=== PATIENT | male | born 1955 | race Caucasian/White ===

== ENCOUNTER 2021-07-21 00:43 | Day surgery (SDC) | payer OTHER, SELFPAY ==
[2021-07-17 12:43] VITALS: BMI 31.5
[2021-07-21 10:28] VITALS: BP 126/71; PULSE 49; RESP 16; TEMP 36.3; O2SAT 96; BMI 32.1
--- NOTE | 2021-07-21 10:45 | ECG_ITS ---
Measurements Intervals [place] Rate: 45 P: 82 OR: 153 QRS: 6 QRSD: 85 T: 39 QT: 464 QTc: 404 Interpretive Statements SINUS BRADYCARDIA BASELINE ARTIFACT- I, II, III, AVR, AVL, AVF, V1-V2 ABNORMAL ECG Electronically Signed On 07-21-2021 11:07:43 CDT by Ha Monge D.O.
--- NOTE | 2021-07-21 11:05 | SUR.PREOP ---
1105- Per Dr. Santana after evaluation of patient's left ankle fracture patient's surgery cancelled due to increased swelling and fracture blisters. Surgery rescheduled for Wednesday07/25/[address] Santana made patient and aware of plan.
--- NOTE | 2021-07-21 11:05 | WPDHPUPDATE1 ---
History and Physical Update Update Date/Time: 07/21/21 11:05 History and Physical has been reviewed, including an updated exam of the patient. He has fracture blisters with tense swelling around the ankle consistent with this type injury. The lower leg splint was rewrapped snugly and instructions given for him to keep this maximally elevated. This has been rescheduled to this coming July 25.
[2021-07-21 11:25] LABS: Anion Gap 8 mmol/L (8-16); Blood Urea Nitrogen 20 mg/dL (9-20); Calcium 9.1 mg/dL (8.4-10.2); Carbon Dioxide 28 mmol/L (22-30); Chloride 104 mmol/L (98-107); Estimated CRCL calculation 79 ml/min; Estimated Glomerular Filt Rate > 60; Glucose 142 mg/dL (65-110); Potassium 3.8 mmol/L (3.4-5.0); Sodium 140 mmol/L (137-145)
== END 2021-07-21 11:50 | disposition home or self-care (01) ==
PROVIDERS: Anesthesiology; PCP Physician Assistant; Visit Provider Orthopaedic Surgery
DX: S82.832A Other fracture of upper and lower end of left fibula, initial encounter for closed fracture (principal); Z53.09 Procedure and treatment not carried out because of other contraindication
CPT/HCPCS: 36415; 80048; 93005; 99212; G0463

== ENCOUNTER 2021-07-25 02:00 | Day surgery (SDC) | payer OTHER, SELFPAY ==
[2021-07-21 12:30] VITALS: BMI 32.1
[2021-07-25] VITALS (8 sets, daily range): BP systolic 108–141; BP diastolic 55–82; PULSE 58–69; RESP 10–19; TEMP 36.3; O2SAT 95–100
--- NOTE | ~2021-07-25 | XR_ITS ---
EXAMINATION: XR surgery orthopedic DATE: 07/25/2021 09:00 INDICATION: ORIF left ankle fracture TECHNIQUE: A fluoroscopic spot images of the left ankle were obtained during procedure performed by Kristopher Santana. Radiologist was not present for the imaging or procedure. The amount of fluoroscopy time use d during this procedure was 0.6 minutes. COMPARISON: 07/16/2021 FINDINGS: Interval fixation of the prior distal fibular diaphyseal fracture with a lateral plate and screws. Th e fractures in essentially anatomic alignment. There is also been reduction and fixation of the dista l syndesmotic injury with a lucent wire fixation with metallic buttons at either side of the lucent d istal tibial and fibular metaphyseal tunnels. The prior mild subluxation of the ankle joint is been r educed also too anatomic alignment with a congruent ankle mortise. No other fractures identified. IMPRESSION: 1. Reduction to essentially anatomic alignment post open reduction internal fixation of a distal fibu lar diaphyseal fracture with distal tibiofibular syndesmotic injury. Reviewed, dictated and finalized at location A. IMPRESSION: 1. Reduction to essentially anatomic alignment post open reduction internal fix ation of a distal fibular diaphyseal fracture with distal tibiofibular syndesmo tic injury.
[2021-07-25] MEDS: ACETAMINOPHEN 500 MG TABLET 1000 MG PO (06:57)
[2021-07-25] MEDS: KETOROLAC 15 MG/ML VIAL (*BKC) IV PUSH (06:57)
--- NOTE | 2021-07-25 07:10 | WPDANESEPPF ---
Anes - Initial Pre Proc Eval Procedure: Operation Date: 07/25/21 07:30 Proposed Procedures p Open Reduction Internal Fixation Left Ankle Fracture - Dru Santana MD Date/Time: 07/25/21 07:10 Surgeon: Dru Santana MD Pre Op Diagnosis: Cullen C Ankle Fracture Patient Data Age: 65 Gender: M Height: 1.78 m Weight: 100.2 kg Allergies Allergy/AdvReac Type Severity Reaction Status Date / Time Penicillins Allergy Severe Hives Verified 07/25/21 06:46 Home Medications Medication Instructions Recorded Confirmed Type lisinopril-hydrochlorothiazide 1 tablet PO HS 07/17/21 07/25/21 History rosuvastatin 10 mg PO HS 07/17/21 07/25/21 History verapamil 240 mg 24 hr 240 mg PO HS 07/17/21 07/25/21 History capsule,extended release Patient hx anesthesia problems: none Family hx anesthesia problems: none Results Review: All pre-operative results and documents have been reviewed as part of the pre-operative evaluation. PMFSH Past Medical History Medical History Hyperlipidemia Hypertension Family History Family History Father Family history of malignant neoplasm Patient's father is Mother Family history of heart disease in male family member before age 55 Patient's mother is Social History Social History Smoking status: Never smoker Alcohol intake: current Alcohol use details: RARE Substance use: never Substance use type: does not use Living arrangements: with family Gender identity (if verbalized by the patient): Male Spiritual care concerns: No Anes - Eval Final PreProcedure Day of Procedure 07/25/21 07:10 Patient weight: obese Heart: regular rate and rhythm Lungs: clear to auscultation Airway: Mallampati scale class II Neurological: alert and oriented Last oral intake: >/= 8 hours ASA classification: III Emergent: no Anesthetic plan: proceed Anesthesia type and monitoring: general LMA and standard monitoring Results Review: All pre-operative results and documents have been reviewed as part of the pre-operative evaluation. Informed Consent: The patient's anesthetic plan and its attendant risks and benefits were discussed with the patient/family/POA. Questions were solicited and answers provided to the satisfaction of the patient/family/POA.
[2021-07-25] MEDS: LACTATED RINGERS 1,000 ML 30 ML IV CONT ×2 (07:16→09:12)
--- NOTE | 2021-07-25 07:16 | WPDHPUPDATE1 ---
History and Physical Update Update Date/Time: 07/25/21 07:16 History and Physical has been reviewed, including an updated exam of the patient. There are NO changes in the patient's condition. Risks, benefits, and alternatives have been discussed and questions answered. Patient agrees to proceed with ORIF left ankle fracture.
[2021-07-25] MEDS: ceFAZolin 2 GM/D5W 50 ML 2 GM/50 ML BAG IVPB (07:40)
--- NOTE | 2021-07-25 07:43 | WPDANESPNB ---
Anes - Peripheral Nerve Block Date/Time: 07/25/21 07:43 I have discussed with the patient/family/POA the placement of a peripheral nerve block for post-operative pain management, including associated risks, benefits, complications, and side effects. Alternative methods of post-operative analgesia were detailed. Questions were solicited and answers provided to the satisfaction of the patient/family/POA. Time-Out: A pre-procedural Time-Out was completed immediately before starting the procedure and confirmed: Patient Identification, Site, Procedure, Patient Position and the Availability of Requisite Equipment. Clinical Indications: Acute post-operative pain management requested by the operative surgeon. Nerve Block Insertion Note Anes-nerve block: posterior fossa sciatic left and other (Saphenous left) Patient position: supine Skin prep: chlorhexidine Needle: 22 gauge, stimulating, insulated echogenic needle. Needle length: 80 mm Technique: nerve stimulation lost at (mA) Technique comment: mid 2mg, [id number] Injectate: bupivacaine 0.5% with epi 5 mcg/ml (20/10ml no epi) and dexamethasone (mg) (4) Observations: tolerated well Complications: none Procedure start time:: 720 Procedure end time:: 728
--- NOTE | 2021-07-25 09:30 | W.PM.PROC2 ---
Procedure Note - Detailed Date of Procedure 07/25/21 Pre-op Diagnosis Cullen C Ankle Fracture with syndesmotic disruption Post-op Diagnosis same Procedure Performed ORIF distal fibular shaft with syndesmotic stabilization Surgeon Dru Santana MD Lead Pl Sql Developer Shelbie Mera Anesthesia general and regional Description of Procedure The patient was identified in the proper site was identified. The ankle was inspected and much of the swelling had receded. In the preoperative holding area, Anesthesia team performed a left lower leg block. He was then taken to the operating room and transferred to the or table placing him supine taking care to pad his torso extremities. After general anesthetic induction intubation, a nonsterile tourniquet was placed high on the left thigh. Left lower extremity was prepped and draped usual sterile fashion. The extremity was exsanguinated and the tourniquet was inflated to 300 millimeters of mercury remaining up for 50 minutes. A longitudinal incision was made over the distal fibula. Subcutaneous tissue sharply dissected down to the deep fascia. Interval between the anterior posterior compartments was developed allowing for exposure of the fibular shaft fracture. This was able to be anatomically reduced and then secured using a 1/3 tubular locking plate with four cortices above and below the fracture site giving rigid fixation. Once this was accomplished, the syndesmosis was assessed. It was noted to still spring open with a lateral an external rotation force applied to the ankle. This is held in a reduced position with the ankle slightly dorsiflexed and secured with the syndesmosis tight rope from the Arthrex set. This gave solid fixation of the syndesmosis. Ankle was stable following the placement of the type probe. The lateral wound was irrigated with sterile saline solution. Subcutaneous tissue was reapproximated with 2-0 Stratafix and the skin with nata. Sterile dressing was applied tourniquet was released. A well-padded stirrup type ankle splint was fashioned with the ankle in a neutral position. He tolerated the procedure well. He was awakened, extubated and taken to recovery area in stable condition. There were no known intraoperative complications. Estimated blood loss 10 milliliters. He received perioperative antibiotics. There were no known intraoperative complications. Estimated Blood Loss -10.0 Tourniquet Time 50 Drains No Packing No Pathology none sent Complications No immediate complications Condition stable Disposition PACU
--- NOTE | 2021-07-25 10:20 | SUR.PHASEII ---
1010 - updated by phone.
== END 2021-07-25 11:10 | disposition home or self-care (01) ==
PROVIDERS: PCP Physician Assistant; Visit Provider Orthopaedic Surgery
PROC: (CPT 27792; principal; 2021-07-25 07:30)
DX: S93.439A Sprain of tibiofibular ligament of unspecified ankle, initial encounter (principal); S93.432A Sprain of tibiofibular ligament of left ankle, initial encounter; S82.892A Other fracture of left lower leg, initial encounter for closed fracture; G89.18 Other acute postprocedural pain; X58.XXXA Exposure to other specified factors, initial encounter; E78.5 Hyperlipidemia, unspecified; I10 Essential (primary) hypertension; E66.9 Obesity, unspecified; Z68.31 Body mass index [BMI] 31.0-31.9, adult
CPT/HCPCS: 27792; 64454; 64450; 27829; A9270; C1713; J0690; J1100; J1170; J1885; J2250; J2370; J2405; J2704; J3010; J7120

== ENCOUNTER 2021-10-01 15:08 | Outpatient (CLI) | payer OTHER, SELFPAY ==
--- NOTE | ~2021-10-01 | US_ITS ---
EXAMINATION: US venous doppler [facility] DATE: 10/01/2021 15:52 INDICATION: Left calf swelling. TECHNIQUE: Grayscale ultrasound images without and with compression and Doppler ultrasound images of the left lower extremity veins were obtained. COMPARISON: None. FINDINGS: The visualized portions of left common femoral vein, profunda (deep) femoral vein, femoral vein, popl iteal vein, peroneal veins, posterior tibial veins, and greater saphenous vein outflow are patent. IMPRESSION: 1. No deep venous thrombosis. Reviewed, dictated and finalized at location A. [facility] OPERATIONS MANAGER
== END 2021-10-01 15:09 | disposition home or self-care (01) ==
LOC: ANHIMG 15:09
PROVIDERS: PCP Physician Assistant; Visit Provider Orthopaedic Surgery
DX: M79.89 Other specified soft tissue disorders (principal)
CPT/HCPCS: 93971

== ENCOUNTER 2021-10-09 16:19 | Inpatient (IN) | payer OTHER, SELFPAY ==
[2021-10-08 15:08] VITALS: BMI 33.0
--- NOTE | 2021-10-08 15:13 | PC.NURSE ---
Report to the Outpatient Waiting Room, entrance under the green pavilion located off [facility], at time 1430 on date 10/09/21 . OR Time: __1630 . - You and your visitor will be asked a series of questions to screen for COVID 19 for your protection. - A mask is required within the hospital. - Only one visitor is allowed at this time. Patient visitors will be guided where to wait when not with patient. Preoperative COVID Testing Requirements: No COVID Test needed if: (proof is required; if not received patient will have Rapid Test prior to entry) - Patient has received COVID Vaccine at least 14 days prior to procedure date or - Patient has positive COVID test result within last 90 days of surgery date. COVID Test needed if above criteria is not met If not COVID vaccinated a COVID test must be conducted within 72 hours of surgery and patient is asked to isolate self from time of testing until procedure. You will go to the [employer] [facility] Testing Site for your COVID testing. The [employer] [facility] site is located at the corner of [address] [facility]. You will only be called if COVID results are positive and your surgeon may reschedule your elective surgery date. Patients may have clear liquids (water, carbonated beverages, clear teas, apple juice) until 3 hours prior to surgery with a maximum of 20 ounces. - No food from midnight until time of surgery - Infants may have breast milk until 4 hours before surgery, infant formula 6 hours prior to surgery. - Children will be allowed to drink immediately following surgery. If applicable, please bring a bottle or sippy cup to assist with drinking. Juice, water, soda, and popsicles are readily available. For infants on formula, please bring formula the day of surgery. Pacifiers are allowed. Take the following medications with a SIP of water the morning of surgery: ___NONE Medications to discontinue per physician NONE Date to take last dose Please no make-up, nail marshallese, hairspray, perfume, deodorant, or body powder the day of surgery. No jewelry (including any body piercings) or valuables the day of surgery, leave them at home. Please take a shower or bath the night before, or the morning of, surgery with an antibacterial soap. Wear comfortable, loose fitting clothing. Children are encouraged to wear pajamas. - Jewelry must be removed prior to entering the operating room. Rings and piercings that are not removed may be cut off. - The hospital will not accept responsibility for valuables. - Please leave all valuables, including medications, at home the day of surgery. If you are going home after surgery, a licensed [employer] company flatbed driver must drive you home. - NO public transportation without another adult. - We recommend that an adult stay with you for 24 hours following discharge. - We also recommend that you do not drive, make important decision, drink alcoholic beverages, or take any drugs that were not prescribed by your health care provider for at least 24 hours after your discharge time. For Pediatric surgeries, we recommend two adults accompany the child home (only one inside the building at this time). Follow any additional instructions given to you from your surgeon. Telephone instructions given to __PATIENT and asked if any additional questions and then verbalized understanding. Patient advised to call surgeon office or pre surgery nurse liaison [phone] if any additional questions.
[2021-10-09] VITALS (10 sets, daily range): BP systolic 119–156; BP diastolic 68–84; PULSE 43–56; RESP 12–20; TEMP 35.7–36.6; O2SAT 95–99
--- NOTE | 2021-10-09 13:23 | WPDHPUPDATE1 ---
History and Physical Update Update Date/Time: 10/09/21 13:23 History and Physical has been reviewed, including an updated exam of the patient. There are NO changes in the patient's condition. Risks, benefits, and alternatives have been discussed and questions answered. Patient agrees to proceed with procedure.
[2021-10-09] MEDS: LACTATED RINGERS 1,000 ML 30 ML IV CONT ×2 (13:25→15:25)
[2021-10-09] MEDS: ACETAMINOPHEN 500 MG TABLET 1000 MG PO (13:31)
[2021-10-09] MEDS: KETOROLAC 15 MG/ML VIAL (*BKC) IV PUSH (13:34)
--- NOTE | 2021-10-09 13:36 | WPDANESEPPF ---
Anes - Initial Pre Proc Eval Procedure: Operation Date: 10/09/21 16:30 Proposed Procedures p Incision and Drainage Left Fibula Wound, Wound Vac Application, - Dru Santana MD s Possible Removal Hardware Left Ankle - Dru Santana MD Date/Time: 10/09/21 13:36 Surgeon: Dru Santana MD Pre Op Diagnosis: wound infection left leg, s/p ORIF ankle Patient Data Age: 66 Gender: M Height: 1.78 m Weight: 104.8 kg Last Vital Signs Temp 36.6 C 10/09/21 12:53 Pulse 51 L 10/09/21 12:53 Resp 20 10/09/21 12:53 BP 156/78 H 10/09/21 12:53 Pulse Ox 97 10/09/21 12:53 Allergies Allergy/AdvReac Type Severity Reaction Status Date / Time Penicillins Allergy Severe Hives Verified 10/09/21 12:57 Home Medications Medication Instructions Recorded Confirmed Type lisinopril-hydrochlorothiazide 1 tablet PO HS 07/17/21 10/09/21 History rosuvastatin 10 mg PO HS 07/17/21 10/09/21 History verapamil 240 mg 24 hr 240 mg PO HS 07/17/21 10/09/21 History capsule,extended release silver sulfadiazine 1 % topical 1 applic TOPICAL BID #85 g 08/14/21 10/09/21 Rx cream acetaminophen [Tylenol] 500 mg PO PRN PRN 10/08/21 10/09/21 History Laboratory Tests 10/09/21 13:21 Sodium Pending Potassium Pending Chloride Pending Carbon Dioxide Pending Anion Gap Pending BUN Pending Creatinine Pending Estim Creat Clear Calc Pending Estimated GFR Pending Glucose Pending Calcium Pending Patient hx anesthesia problems: none Family hx anesthesia problems: none Results Review: All pre-operative results and documents have been reviewed as part of the pre-operative evaluation. [facility] Past Medical History Medical History Arthritis Hyperlipidemia Hypertension Surgical History Surgical History Ankle syndesmosis disruption tightrope July 25, 2021 Closed fracture of left distal fibula ORIF July 25, 2021 Family History Family History Father Family history of malignant neoplasm Patient's father is Mother Family history of heart disease in male family member before age 55 Patient's mother is Social History Social History Smoking status: Never smoker Alcohol intake: current Alcohol use details: RARE Substance use: never Substance use type: does not use Living arrangements: with family Gender identity (if verbalized by the patient): Male Spiritual care concerns: No Anes - Eval Final PreProcedure Day of Procedure 10/09/21 13:36 Patient weight: obese Heart: regular rate and rhythm Lungs: clear to auscultation Airway: Mallampati scale class II Neurological: alert and oriented Last oral intake: >/= 8 hours ASA classification: III Emergent: no Anesthetic plan: proceed Anesthesia type and monitoring: general LMA and standard monitoring Results Review: All pre-operative results and documents have been reviewed as part of the pre-operative evaluation. Informed Consent: The patient's anesthetic plan and its attendant risks and benefits were discussed with the patient/family/POA. Questions were solicited and answers provided to the satisfaction of the patient/family/POA.
--- NOTE | 2021-10-09 13:43 | SUR.PREOP ---
1320-DISCUSSED DRESSING REMOVAL/HAIR REMOVAL STATUS W/DR. BRICEÑO, STATES TO LEAVE DRESSING IN PLACE AND IT WILL BE REMOVED IN OR AND HAIR REMOVAL IF NEEDED.
[2021-10-09 13:46] LABS: Anion Gap 9 mmol/L (8-16); Blood Urea Nitrogen 18 mg/dL (9-20); Calcium 9.3 mg/dL (8.4-10.2); Carbon Dioxide 30 mmol/L (22-30); Chloride 102 mmol/L (98-107); Estimated CRCL calculation 73 ml/min; Estimated Glomerular Filt Rate > 60; Glucose 138 mg/dL (65-110); Potassium 4.4 mmol/L (3.4-5.0); Sodium 141 mmol/L (137-145)
[2021-10-09] MEDS: ceFAZolin SODIUM 1 GM VIAL 2 GM IV PUSH (14:25)
--- NOTE | 2021-10-09 15:04 | SUR.OPER ---
Gram Stain results relayed to Dr. Santana at 2095.
--- NOTE | 2021-10-09 15:06 | P.OP_ITS ---
Procedure Note - Detailed Date of Procedure 10/09/21 Pre-op Diagnosis wound infection left leg, s/p ORIF ankle Post-op Diagnosis same Procedure Performed Debridement superficial wound infection left leg with placement of a wound VAC Surgeon Dru Santana MD Retail Specialist Tabitha Kasper Anesthesia general Description of Procedure The patient was identified and proper site identified. He was taken back to the operating room and transferred to the OR table placing supine taking care to pad his torso and extremities. After general anesthetic induction and intubation, a nonsterile tourniquet was placed high in the left thigh but was not used. Left lower extremity was prepped and draped in usual sterile fashion. The central portion of the wound was curetted to access the deeper tissue. Cultures were taken from the wound after which 2 grams of IV Ancef were administered. Stat Gram stain was also obtained which came back with a reading of few white blood cells and no organisms seen. The wound was opened up along the length of the fibrinous necrotic tissue measuring about 10 centimeters. Skin edges were excised and the wound probed in its entirety. There was no communication with any of the deeper tissues. Wound was curetted to a healthy bleeding bed of tissue. Hemostasis carried out with electrocautery. The wound was irrigated with a bacitracin and saline solution. Once the wound had been debrided, the wound VAC was applied and hooked up to suction. Patient tolerated the procedure well. He was awakened, extubated, transferred to a bed taken back to recovery area in stable condition. There were no known intraoperative complications. Estimated blood loss was 10 milliliters. The antibiotics were held until the cultures were taken. Estimated Blood Loss -10.0 Tourniquet Time 0 Drains No Packing No Pathology none sent Complications No immediate complications Condition stable Disposition PACU
[2021-10-09] MEDS: fentaNYL CITRATE INJ (*CRX) 100 MCG/2 ML VIAL 25 MCG IV PUSH (15:43)
--- NOTE | 2021-10-09 16:57 | ADMGEN ---
This patient, Eliud Cabello, was admitted to [facility]. Patient/family oriented to hospital policies and general routines including ID bracelet, bed and alarms, visiting hours, pain management, procedures, bathroom and other care routines, personal items, smoking policy, room service/diet, and visiting hours. Information on how to activate the Rapid Response Team has been discussed. Patient/Family are encouraged to report perceived risks to care and to ask questions if they do not understand what they are told or what they should do.
[2021-10-09] MEDS: SENNA/DOCUSATE SODIUM TABLET 2 TAB PO (17:11)
[2021-10-09] MEDS: SODIUM CHLORIDE 0.9% IV 1,000 ML 125 ML IV CONT (18:56)
[2021-10-09] MEDS: FAMOTIDINE 20 MG TABLET PO (20:53)
[2021-10-09] MEDS: hydroCHLOROthiazide 12.5 MG CAPSULE PO (20:53)
[2021-10-09] MEDS: ASPIRIN 325 MG ENTERIC TABLET PO (20:53)
[2021-10-09] MEDS: ROSUVASTATIN 10 MG TABLET PO (20:54)
[2021-10-09] MEDS: VERAPAMIL HCL ER 240 MG TABLET.ER PO (20:54)
[2021-10-09] MEDS: lisinopriL 10 MG TABLET PO (20:54)
[2021-10-09] MEDS: ceFAZolin 2 GM/D5W 50 ML 2 GM/50 ML BAG IVPB (22:06)
[2021-10-10] MEDS: ceFAZolin 2 GM/D5W 50 ML 2 GM/50 ML BAG IVPB ×3 (05:55→22:51)
[2021-10-10 06:00] VITALS: BP 128/68; PULSE 51; RESP 20; O2SAT 96
[2021-10-10 07:27] LABS: Basophils Percent Auto 0.3 % (0.2-1.2); Eosinophils Absolute Auto 0.1 K/mm3 (0-0.3); Eosinophils Percent Auto 2.1 % (0-4.4); Hematocrit 38.4 % (42.0-52.0); Hemoglobin 13.1 g/dL (14.0-18.0); Immature Granulocyte Absolute 0.02 K/mm3 (0.00-0.031); Immature Granulocyte Percent A 0.3 % (0-0.5); Lymphocytes Absolute Auto 1.74 K/mm3 (0.9-3.2); Mean Corpuscular HGB Conc 34.1 g/dl (32-36); Mean Corpuscular Hemoglobin 30.1 pg (26-34); Mean Corpuscular Volume 88.3 fl (80-100); Mean Platelet Volume 11.2 fl (7.4-10.4); Monocytes Absolute Auto 0.6 K/mm3 (0.1-0.6); Monocytes Percent Auto 8.5 % (2.6-8.5); Neutrophils Absolute Auto 4.2 K/mm3 (1.3-6.7); Neutrophils Percent Auto 62.8 % (45.5-73.1); Platelet Count Result 171 k/mm3 (150-375); Red Blood Count 4.35 M/mm3 (4.6-6.20); Red Cell Distribution Width 12.5 % (11.5-14.5); White Blood Count 6.7 K/mm3 (4.5-10.0)
[2021-10-10 07:29] LABS: Anion Gap 9 mmol/L (8-16); Blood Urea Nitrogen 14 mg/dL (9-20); Calcium 8.6 mg/dL (8.4-10.2); Carbon Dioxide 26 mmol/L (22-30); Chloride 104 mmol/L (98-107); Estimated CRCL calculation 80 ml/min; Estimated Glomerular Filt Rate > 60; Glucose 170 mg/dL (65-110); Potassium 3.5 mmol/L (3.4-5.0); Sodium 139 mmol/L (137-145)
[2021-10-10] MEDS: ASPIRIN 325 MG ENTERIC TABLET PO ×2 (08:56→22:48)
[2021-10-10] MEDS: FAMOTIDINE 20 MG TABLET PO ×2 (08:56→22:48)
[2021-10-10] MEDS: polyethylene glycoL 3350 17 GM POWD.PACK PO (08:56)
[2021-10-10 10:26] VITALS: BP 150/83; PULSE 51; RESP 16; TEMP 36.2; O2SAT 95
--- NOTE | 2021-10-10 12:31 | PM.PNORT ---
Progress Note: A&P Assessment and Plan (1) Postoperative wound infection: Code(s): T81.49XA - Infection following a procedure, other surgical site, initial encounter Status: Acute Assessment and Plan: 66-year-old male postop day one left leg wound debridement and placement of wound VAC. initial aerobic cultures are showing negative bacillus. Awaiting identification and sensitivities. We will continue with vancomycin and Ancef for the time being. Surgery discussed in detail with the patient and his . I think that since the plate remained in and, it is fine for him to be full weight-bearing although I would like for him to use a walker since he is going to be caring around the device for the wound VAC. Subjective Subjective Date/Time Seen: 10/10/21 12:31 Post Op day: 1 Principal diagnosis: Status post debridement left leg wound Interval history: This document created with [id number] technology and is subject to assistant to the dean irregularities. 66-year-old male who is postop day one debridement left leg wound. At the time of surgery, the wound was probed and found to not go down to the fibular plate so it was not removed. The wound was thoroughly debrided and a wound VAC placed. It was changed this morning. Overall he is having very little discomfort. He is currently on IV antibiotics. Review of Systems Constitutional: Constitutional: Denies fever(s) Eyes: Eyes: Reports no additional eye complaints ENT: Reports system reviewed and no additional complaints, except as documented Cardiovascular: Cardiovascular: Denies chest pain Respiratory: Respiratory: Reports no additional respiratory complaints Gastrointestinal: Gastrointestinal: Denies abdominal pain Exam Const: General: cooperative, no acute distress and alert Nutritional Appearance: obese (BMI 33.2) Orientation/consciousness: patient oriented x3 Limitations: no limitations HENMT: Head: normal to inspection Ears: hearing grossly normal bilaterally Face and sinus: face symmetric Mouth: Yes moist mucous membranes Teeth and gingiva: fair dentition Eyes: Alignment and Position: alignment normal and position normal Sclera: sclerae normal Neck: Neck: normal visual inspection and nontender Chest: Chest palpation & inspection: normal inspection of the chest Resp: Effort & Inspection: normal respiratory effort and able to speak in complete sentences GI: Inspection: other (Nondistended) Skin: General skin exam: normal color Rashes: no rashes Neuro: General: patient oriented x3 Cognition (Neuro): normal cognition Speech: normal speech Gait exam (Neuro): Other gait observations present Sensory Exam: normal sensation (Left lower extremity) Extrem: General: normal to inspection and other Other: Exam of the left leg reveals minimal swelling below the knee. Motor and sensory function intact to the foot. Wound VAC in place. Psych: Appearance: grossly normal Mental Status: mental status grossly normal Objective Data Vital Signs Vital Signs: Vital Signs - 24 hr 10/09/21 12:53 10/09/21 14:53 10/09/21 15:05 Temperature 97.9 F 97.4 F L Pulse Rate 51 L 56 L 46 L Respiratory Rate 20 16 14 Blood Pressure 156/78 H 119/70 132/73 Pulse Oximetry 97 95 98 10/09/21 15:20 10/09/21 15:35 10/09/21 15:50 Temperature Pulse Rate 49 L 43 L 45 L Respiratory Rate 16 14 14 Blood Pressure 125/80 131/80 137/84 Pulse Oximetry 99 99 98 10/09/21 16:05 10/09/21 16:18 10/09/21 17:54 Temperature 96.3 F L 97.0 F L Pulse Rate 49 L 43 L 53 L Respiratory Rate 14 12 16 Blood Pressure 139/78 141/76 H 128/68 Pulse Oximetry 95 98 97 10/09/21 22:00 10/10/21 06:00 10/10/21 10:26 Temperature 97.1 F L Pulse Rate 50 L 51 L 51 L Respiratory Rate 20 20 16 Blood Pressure 130/72 128/68 150/83 H Pulse Oximetry 99 96 95 Intake/Output Intake/Output: Intake & Output 10/07/21 10/08/21 10/09/21 10/10/21 23:59 23:59 23:59 23:59 Intake Total
[2021-10-10] MEDS: SENNA/DOCUSATE SODIUM TABLET 2 TAB PO (12:59)
[2021-10-10 17:25] VITALS: BP 150/76; PULSE 52; RESP 16; TEMP 36.1; O2SAT 97
[2021-10-10 20:00] VITALS: BP 150/74; PULSE 50; RESP 18; TEMP 36.4; O2SAT 95
[2021-10-10] MEDS: lisinopriL 10 MG TABLET PO (22:48)
[2021-10-10] MEDS: ROSUVASTATIN 10 MG TABLET PO (22:48)
[2021-10-10] MEDS: hydroCHLOROthiazide 12.5 MG CAPSULE PO (22:48)
[2021-10-10] MEDS: VERAPAMIL HCL ER 240 MG TABLET.ER PO (22:49)
[2021-10-11] VITALS: BP 159/82; PULSE 78; RESP 20; TEMP 36.3; O2SAT 97
[2021-10-11 04:00] VITALS: BP 153/81; PULSE 52; RESP 16; TEMP 36; O2SAT 98
[2021-10-11] MEDS: ceFAZolin 2 GM/D5W 50 ML 2 GM/50 ML BAG IVPB ×3 (05:46→22:14)
[2021-10-11] MEDS: FAMOTIDINE 20 MG TABLET PO ×2 (09:02→22:10)
[2021-10-11] MEDS: SENNA/DOCUSATE SODIUM TABLET 2 TAB PO ×2 (09:02→16:56)
[2021-10-11] MEDS: ASPIRIN 325 MG ENTERIC TABLET PO ×2 (09:38→22:11)
--- NOTE | 2021-10-11 09:53 | PM.PNORT ---
Progress Note: A&P Assessment and Plan (1) Postoperative wound infection: Code(s): T81.49XA - Infection following a procedure, other surgical site, initial encounter Status: Acute Assessment and Plan: 66-year-old male with a postoperative wound infection. Initial identification is Gram-negative bacillus. Await the final id and sensitivities before determining antibiotic . Because of the anaerobic Gram-negative bacillus, will switch to clindamycin for the time being and discontinue the vancomycin but continue Ancef. Continue current course. Subjective Subjective Date/Time Seen: 10/11/21 09:53 Post Op day: 2 Principal diagnosis: Status post debridement left leg wound infection Interval history: 66-year-old male postop day two left leg wound infection debridement and placement of wound VAC. He is having essentially no pain. Exam Const: General: cooperative, comfortable and no acute distress Nutritional Appearance: well nourished Extrem: Other: Little to no swelling in the left lower leg. Wound VAC sealed. Surrounding skin non erythematous. Neurovascular status left lower extremity unremarkable. Calves negative. Objective Data Vital Signs Vital Signs: Vital Signs - 24 hr 10/10/21 10:26 10/10/21 17:25 10/10/21 20:00 Temperature 97.1 F L 97.0 F L 97.6 F Pulse Rate 51 L 52 L 50 L Respiratory Rate 16 16 18 Blood Pressure 150/83 H 150/76 H 150/74 H Pulse Oximetry 95 97 95 10/11/21 00:00 10/11/21 04:00 Temperature 97.4 F L 96.8 F L Pulse Rate 78 52 L Respiratory Rate 20 16 Blood Pressure 159/82 H 153/81 H Pulse Oximetry 97 98 Intake/Output Intake/Output: Intake & Output 10/08/21 10/09/21 10/10/21 10/11/21 23:59 23:59 23:59 23:59 Intake Total 1800 / 1800 1130 / 1130 1290 / 1290 Balance 1800 / 1800 1130 / 1130 1290 / 1290 Meds/Results Medications: Active Medications Generic Name Dose Route Start Last Admin Trade Name Freq PRN Reason Stop Dose Admin Acetaminophen 650 mg 10/09/21 16:18 Acetaminophen 325 Mg Tablet PO Q6H PRN Pain Rated 1-3 Hydrocodone Bitart/Acetaminophen 1 tab 10/09/21 16:18 Hydrocodone/Acetaminophen (*Crx) 5-325 Mg Tablet PO Q3H PRN Pain Rated 4-6 Hydrocodone Bitart/Acetaminophen 2 tab 10/09/21 16:18 Hydrocodone/Acetaminophen (*Crx) 5-325 Mg Tablet PO Q6H PRN Pain Rated 7-10 Aspirin 325 mg 10/09/21 21:00 10/11/21 09:38 Aspirin 325 Mg Enteric Tablet PO 325 mg Q12HR JESSEE Administration Cyclobenzaprine HCl 10 mg 10/09/21 16:18 Cyclobenzaprine Hcl 10 Mg Tablet PO Q8H PRN Muscle Spasm Famotidine 20 mg 10/09/21 21:00 10/11/21 09:02 Famotidine 20 Mg Tablet PO 20 mg Q12HR JESSEE Administration Hydrochlorothiazide 12.5 mg 10/09/21 21:00 10/10/21 22:48 Hydrochlorothiazide 12.5 Mg Capsule PO 12.5 mg HS JESSEE Administration Vancomycin HCl 1,500 mg in 500 mls @ 333.333 mls/hr 10/09/21 18:00 10/11/21 07:30 Vancomycin 1,500 Mg/D5w 500 Ml IVPB Infused Q18H JESSEE Infusion Cefazolin Sodium 2 gm in 50 mls @ 100 mls/hr 10/10/21 14:00 10/11/21 06:27 Ancef 2 Gm/D5w 50 Ml IVPB 10/13/21 13:59 Infused Q8H JESSEE Infusion Lisinopril 10 mg 10/09/21 21:00 10/10/21 22:48 Lisinopril 10 Mg Tablet PO 10 mg HS JESSEE Administration Ondansetron HCl 4 mg 10/09/21 16:18 Ondansetron Inj 4 Mg/2 Ml Vial IV PUSH Q4H PRN Nausea And Vomiting Polyethylene Glycol 17 gm 10/10/21 09:00 10/11/21 09:03 Polyethylene Glycol 3350 17 Gm Powd.Pack PO Not Given QAM JESSEE Rosuvastatin Calcium 10 mg 10/09/21 21:00 10/10/21 22:48 Rosuvastatin 10 Mg Tablet PO 10 mg HS JESSEE Administration Senna/Docusate Sodium 2 tab 10/09/21 17:00 10/11/21 09:02 Senna/Docusate Sodium Tablet PO 2 tab BID JESSEE Administration Verapamil HCl 240 mg 10/09/21 21:00 10/10/21 22:49 Verapamil Hcl Er 240 Mg Tablet.Er PO 240 mg HS JESSEE Administration Oliver
[2021-10-11 10:47] VITALS: BP 145/80; PULSE 46; RESP 14; TEMP 36; O2SAT 95
[2021-10-11 13:43] VITALS: BP 144/86; PULSE 52; RESP 14; TEMP 35.9; O2SAT 95
[2021-10-11] MEDS: CLINDAMYCIN 900 MG/D5W 50 ML 900 MG/50 ML PIGGYBACK 50 MG IVPB ×2 (14:43→22:11)
[2021-10-11 22:00] VITALS: BP 143/79; PULSE 54; RESP 18; TEMP 36.4; O2SAT 96
[2021-10-11] MEDS: lisinopriL 10 MG TABLET PO (22:10)
[2021-10-11] MEDS: hydroCHLOROthiazide 12.5 MG CAPSULE PO (22:10)
[2021-10-11] MEDS: ROSUVASTATIN 10 MG TABLET PO (22:10)
[2021-10-11] MEDS: VERAPAMIL HCL ER 240 MG TABLET.ER PO (22:10)
[2021-10-12 06:00] VITALS: BP 163/92; PULSE 87; RESP 21; TEMP 36; O2SAT 100
[2021-10-12] MEDS: ceFAZolin 2 GM/D5W 50 ML 2 GM/50 ML BAG IVPB (06:17)
[2021-10-12] MEDS: CLINDAMYCIN 900 MG/D5W 50 ML 900 MG/50 ML PIGGYBACK 50 MG IVPB (06:20)
[2021-10-12] MEDS: ASPIRIN 325 MG ENTERIC TABLET PO ×2 (08:13→21:19)
[2021-10-12] MEDS: FAMOTIDINE 20 MG TABLET PO ×2 (08:13→21:18)
[2021-10-12] MEDS: SENNA/DOCUSATE SODIUM TABLET 2 TAB PO ×2 (08:13→16:13)
--- NOTE | 2021-10-12 08:20 | PM.PNORT ---
Progress Note: A&P Assessment and Plan (1) Postoperative wound infection: Code(s): T81.49XA - Infection following a procedure, other surgical site, initial encounter Status: Acute Assessment and Plan: Plan will be to switch him to Bactrim DS today and discontinue the IV antibiotics. Will check one more CBC tomorrow morning. All has been fine with respect to that. His blood pressure has been running high since he has been here. Will contact his PCP to let her know about this so that adjustments can be made as an outpatient. After his wound VAC dressing is changed tomorrow, he will be able to be discharged. Anticipate keeping him on the Bactrim DS antibiotic therapy for six weeks or until the wound is healed, whichever is longer. Discussed with him in detail. I will plan on seeing him in the office in a couple of weeks for left ankle x-ray. Subjective Subjective Date/Time Seen: 10/12/21 08:20 Post Op day: 3 Principal diagnosis: Status post debridement left leg wound with placement of wound VAC Interval history: 66-year-old male postop day three debridement left leg wound with placement of a wound VAC. He has still continued to have no pain to speak of. He is wanting to go home. Review of Systems Constitutional: Constitutional: Denies chills and Denies fever(s) Eyes: Eyes: Reports no additional eye complaints ENT: Reports system reviewed and no additional complaints, except as documented Cardiovascular: Cardiovascular: Denies chest pain Respiratory: Respiratory: Reports no additional respiratory complaints Gastrointestinal: Gastrointestinal: Denies abdominal pain Exam Const: General: cooperative, no acute distress and alert Nutritional Appearance: other Orientation/consciousness: patient oriented x3 Limitations: no limitations HENMT: Head: normal to inspection Ears: hearing grossly normal bilaterally Face and sinus: face symmetric Mouth: Yes moist mucous membranes Teeth and gingiva: fair dentition Eyes: Alignment and Position: alignment normal and position normal Sclera: sclerae normal Neck: Neck: normal visual inspection and nontender Chest: Chest palpation & inspection: normal inspection of the chest Resp: Effort & Inspection: normal respiratory effort and able to speak in complete sentences GI: Inspection: other ( Nondistended) Skin: General skin exam: normal color Rashes: no rashes Neuro: General: patient oriented x3 Cognition (Neuro): normal cognition Speech: normal speech Gait exam (Neuro): Other gait observations present Sensory Exam: normal sensation Extrem: General: normal to inspection and other Other: Exam of the left leg shows very little swelling in the lower leg below the knee. The wound VAC is well placed and sealed drawing vacuum . Neurovascular status is intact to the left lower extremity. Psych: Appearance: grossly normal Mental Status: mental status grossly normal Objective Data Vital Signs Vital Signs: Vital Signs - 24 hr 10/11/21 10:47 10/11/21 13:43 10/11/21 22:00 Temperature 96.8 F L 96.6 F L 97.5 F L Pulse Rate 46 L 52 L 54 L Respiratory Rate 14 14 18 Blood Pressure 145/80 H 144/86 H 143/79 H Pulse Oximetry 95 95 96 10/12/21 06:00 Temperature 96.8 F L Pulse Rate 87 Respiratory Rate 21 H Blood Pressure 163/92 H Pulse Oximetry 100 Intake/Output Intake/Output: Intake & Output 10/09/21 10/10/21 10/11/21 10/12/21 23:59 23:59 23:59 23:59 Intake Total 1800 / 1800 1130 / 1130 1969 / 1970 650 / 650 Output Total 500 / 500 Balance 1800 / 1800 1130 / 1130 1470 / 1470 650 / 650 Meds/Results Medications: Active Medications Generic Name Dose Route Start Last Admin Trade Name Freq PRN Reason Stop Dose Admin Acetaminophen 650 mg 10/09/21 16:18 Acetaminophen 325 Mg Tablet PO Q6H PRN Pain Rated 1-3 Hydrocodone Bitart/Acetaminophen 1 tab 10/09/21 16:18 Hydrocodone/Acetaminophen (*Crx) 5-325 Mg Tablet PO
[2021-10-12 16:15] VITALS: BP 153/77; PULSE 45; RESP 14; TEMP 35.7; O2SAT 96
[2021-10-12 20:09] VITALS: BP 159/87; PULSE 49; RESP 18; TEMP 36.1; O2SAT 98
[2021-10-12] MEDS: ROSUVASTATIN 10 MG TABLET PO (21:18)
[2021-10-12] MEDS: hydroCHLOROthiazide 12.5 MG CAPSULE PO (21:18)
[2021-10-12] MEDS: VERAPAMIL HCL ER 240 MG TABLET.ER PO (21:18)
[2021-10-12] MEDS: lisinopriL 10 MG TABLET PO (21:18)
[2021-10-13 05:22] LABS: Hematocrit 41.6 % (42.0-52.0); Hemoglobin 14.1 g/dL (14.0-18.0); Mean Corpuscular HGB Conc 33.9 g/dl (32-36); Mean Corpuscular Hemoglobin 30.1 pg (26-34); Mean Corpuscular Volume 88.7 fl (80-100); Mean Platelet Volume 10.8 fl (7.4-10.4); Platelet Count Result 176 k/mm3 (150-375); Red Blood Count 4.69 M/mm3 (4.6-6.20); Red Cell Distribution Width 12.5 % (11.5-14.5); White Blood Count 7.7 K/mm3 (4.5-10.0)
[2021-10-13 05:44] VITALS: BP 152/83; PULSE 82; RESP 17; TEMP 36.7; O2SAT 96
[2021-10-13] MEDS: ASPIRIN 325 MG ENTERIC TABLET PO (08:04)
--- NOTE | 2021-10-13 09:12 | PM.DS ---
DS: Admitting Diagnosis Discharge Date 10/13/2021 Admitting Diagnosis postoperative wound infection DS: Discharge Diagnosis Discharge Diagnosis (1) Postoperative wound infection: Code(s): T81.49XA - Infection following a procedure, other surgical site, initial encounter Status: Acute Assessment and Plan: 66-year-old male admitted for postoperative wound infection of the left ankle . Cultures show that the wound susceptible to Bactrim DS. He will be started on this 2 times daily and take it for 6 weeks. He will be discharged home with an Aquacel silver dressing placed by Eula [facility]donado wound care nurse. He should have a wound VAC delivered to him tomorrow morning and this will placed by [facility] tomorrow. He will also be seen by [facility] on Wednesday and Wednesday for PT OT and dressing changes. He will continue to use a walker and maintain 50% weight-bearing status. He was also started on aspirin 325 mg and he will take this daily for about 6 weeks. He denies any pain and is currently not taking any pain medication. He will use Tylenol as needed for discomfort. CBC obtained this morning and is unremarkable. He will follow up in our office in 2 weeks for wound check and x-ray of the left ankle. DS: Summary Hospital Course Reason for hospitalization: Postoperative wound infection Hospital Course: 66-year-old male admitted for postoperative wound infection of the left ankle. He currently denies any pain and he has a wound VAC in place. There is serosanguineous drainage from the wound VAC but this is minimal. Dressing is clean and dry. The wound VAC dressing was removed by [facility] wound [facility] nurse and a sterile Aquacel silver dressing was reapplied. He will have a wound VAC delivered to him tomorrow and will be placed by home health. He will continue to use the walker while at home to maintain a 50% weight-bearing status. He was started on Bactrim DS while in the hospital and he will continue to take this for 6 weeks along with 325 mg aspirin. He will follow up in the office in 2 weeks for wound check and x-ray. Status at Discharge Functional status at discharge: uses cane/walker Overall status at discharge: patient is progressing back to baseline Time Spent with Patient Time attestation: Total time spent providing and/or coordinating discharge services: Exam Const: General: comfortable and no acute distress Limitations: no limitations HENMT: Mouth: Yes moist mucous membranes Eyes: General: appearance normal, both eyes and all related structures Resp: Effort & Inspection: normal respiratory effort GI: Inspection: non-distended GI Palp: No Tenderness to palpation present (GI) Skin: General skin exam: normal color Rashes: no rashes Neuro: General: patient oriented x3 Cognition (Neuro): normal cognition Speech: normal speech Extrem: Other: Exam of the left ankle reveals mild swelling due to recent procedure. Wound VAC is in place and draining minimal serosanguineous fluid. Dressing is dry. Neurovascular status unremarkable. Psych: Mental Status: mental status grossly normal DS: Data Data Completed and Pending Labs on day of discharge: Labs from last 24 hours 10/13/21 04:55 WBC 7.7 RBC 4.69 Hgb 14.1 Hct 41.6 L MCV 88.7 MCH 30.1 MCHC 33.9 RDW 12.5 Plt Count 176 MPV 10.8 H Preliminary micro results at discharge 10/09/21 14:22 Anaerobic Culture - Preliminary Ankle Left Discharge Plan Discharge Attending physician on discharge: Dru Santana Discharging Clinician: Santos Guardado Anticipated Discharge Date/Time: 10/13/21 14:00 Patient Disposition: Home Health Service Activity: other - see discharge instructions Diet: as tolerated Wound Care Instructions: keep dressing dry Discharge Instructions: Per Care Coordination, patient to discharge with [facility] ([phone]) for PT/OT evaluations and skilled n
== END 2021-10-13 13:50 | disposition home health service (06) | DRG 863 ==
LOC: ANH3MED 10-10 11:26 → ANHSUROVER 10-14 08:09 → ANH3MED 10-14 08:09 → ANHSUROVER 10-14 08:11 → ANH3MED 10-14 08:12 → ANHSURGERY 10-14 08:25 → ANH3MED 10-14 08:26
PROVIDERS: Anesthesiology; Admitting Provider Orthopaedic Surgery; PCP Physician Assistant; Visit Provider Orthopaedic Surgery
PROC: 0HBLXZZ Excision of Left Lower Leg Skin, External Approach (ICD-10-PCS; principal; 2021-10-09 16:30)
DX: T81.41XA Infection following a procedure, superficial incisional surgical site, initial encounter (principal); B99.9 Unspecified infectious disease; Y83.8 Other surgical procedures as the cause of abnormal reaction of the patient, or of later complication, without mention of misadventure at the time of the procedure; Y92.9 Unspecified place or not applicable; M19.90 Unspecified osteoarthritis, unspecified site; E78.5 Hyperlipidemia, unspecified; I10 Essential (primary) hypertension; E66.9 Obesity, unspecified; Z68.33 Body mass index [BMI] 33.0-33.9, adult
CPT/HCPCS: 36415; 80048; 85025; 85027; 87070; 87075; 87077; 87186; 87205; 97110; 97116; 97161; 97165; 97530; 97535; A9270; J0690; J1170; J1885; J2250; J2405; J2704; J3010; J3370; J7030; J7120

== ENCOUNTER 2021-12-03 08:06 | Outpatient (RCR) | payer OTHER, SELFPAY ==
[2021-11-12 08:30] VITALS: BMI 33.1
--- NOTE | 2021-11-12 10:00 | P.PNWOUND_ITS ---
Wound Care Note Date/Time: 11/12/21 10:00 66-year-old male seen at the Wound [facility] ostomy Center at [facility] for 4 week check after wound VAC placement during debridement postsurgical wound infection. He is having no issues. Denies fevers or chills. Assessment and Plan Assessment and plan (1) Postoperative wound infection: Code(s): T81.49XA - Infection following a procedure, other surgical site, initial encounter Status: Acute Assessment and Plan: 66-year-old male who is 4 weeks out from debridement of postsurgical wound infection. The wound VAC will be discontinued today. He will be given gentamicin and Mepilex to perform daily dressing changes. He will be seen once a week in the Wound Clinic for recheck. He will be seen in the office in 1 month for new x-ray of the ankle. Review of Systems Review of Systems: All systems reviewed & are unremarkable except as noted in HPI and below Exam Const: General: comfortable and no acute distress Resp: Effort & Inspection: normal respiratory effort and able to speak in complete sentences Skin: Wounds: wounds noted (Surgical debridement of left ankle) Other: Exam of the wound shows plentiful granulation tissue. Length of the wound is about 4 cm and depth is less than 0.2 cm. Pictures were uploaded to patient's chart.
--- NOTE | 2021-11-26 07:33 | PCWOUND ---
WOCN NOTE Patient left message to cancel due to weather, patient to call back to reschedule
== END 2022-01-16 12:29 | disposition home or self-care (01) ==
LOC: ANHWOC 08:06
PROVIDERS: PCP Physician Assistant; Visit Provider Orthopaedic Surgery
DX: T81.49XD Infection following a procedure, other surgical site, subsequent encounter (principal); S82.832D Other fracture of upper and lower end of left fibula, subsequent encounter for closed fracture with routine healing
CPT/HCPCS: 99212; A9270; G0463

== ENCOUNTER → 2022-02-04 10:57 | Outpatient (CLI) | payer OTHER, SELFPAY ==
--- NOTE | ~2022-02-04 | XR_ITS ---
EXAM: XR cervical spine 4-5V HISTORY: neck pain COMPARISON: 03/01/2012. FINDINGS: Craniocervical association and atlantoaxial joint are normal. No prevertebral soft tissue swelling. Moderate degenerative change at the atlantoaxial joint. Multilevel degenerative disc diseas e, with large anterior osteophytes. Multilevel facet arthropathy. IMPRESSION: No acute fracture or traumatic malalignment in the cervical spine. Chronic degenerative changes descr ibed above. Reviewed, dictated and finalized at location K. IMPRESSION: No acute fracture or traumatic malalignment in the cervical spine. Chronic dege nerative changes described above.
== END ==
PROVIDERS: PCP Physician Assistant; Visit Provider Physician Assistant
DX: M54.2 Cervicalgia (principal)
CPT/HCPCS: 72050

== ENCOUNTER → 2022-03-27 10:51 | Outpatient (CLI) | payer OTHER, SELFPAY ==
--- NOTE | ~2022-03-27 | XR_ITS ---
EXAMINATION: XR lumbar spine 2-3V DATE: 03/27/2022 11:10 INDICATION: Left-sided low back pain TECHNIQUE: Anteroposterior and lateral views of the lumbar spine, and cone-down lateral view of the l umbosacral junction were obtained. COMPARISON: None. FINDINGS: Bone alignment is normal. There is no fracture. There is severe loss of intervertebral disc space height at L2-3 and L5-S1 and moderate loss of intervertebral disc space height throughout the remainder of the lumbar spine. The vertebral body heights are maintained. Degenerative osteophytes pr oject from the anterior endplates of multiple vertebral bodies. There is severe facet osteoarthritis of the lumbar spine. IMPRESSION: 1. Severe lumbar spondylosis without acute findings. Reviewed, dictated and finalized at location F.
== END ==
PROVIDERS: PCP Physician Assistant; Visit Provider Physician Assistant
DX: M54.42 Lumbago with sciatica, left side (principal); G89.29 Other chronic pain; M47.816 Spondylosis without myelopathy or radiculopathy, lumbar region
CPT/HCPCS: 72100

== ENCOUNTER 2022-06-06 09:30 | Outpatient (CLI) | payer OTHER, SELFPAY ==
--- NOTE | ~2022-06-06 | MR_ITS ---
EXAMINATION: MR cervical spine wo con DATE: 06/06/2022 10:27 INDICATION: Left upper extremity weakness. TECHNIQUE: Magnetic resonance imaging (MRI) of the cervical spine was performed without intravenous c ontrast. Sequences included sagittal T2-weighted FSE, sagittal T2-weighted FS FSE, sagittal T1-weight ed FSE, axial MERGE, and axial T2-weighted FSE. COMPARISON: Cervical spine MRI 03/22/2012, radiographs 02/04/2022 FINDINGS: There is 11 degrees levoscoliosis of upper thoracic spine. Vertebral body heights are chayo l. There is mildly decreased disc height at C2-C3, C4-C5, and C5-C6. Osseous central spinal canal is developmentally small in cervical spine. There is increased T2-weighted signal intensity in the spina l cord at C3-C4, C4-C5, and C5-C6, consistent with myelomalacia. The following disc levels are specif ically discussed: C2-C3: There is a central extrusion. There is moderate right and severe left uncovertebral joint oste oarthritis. There is mild right and moderate left facet joint osteoarthritis. There is mild right and moderate left neural foraminal stenosis. There is moderate central canal stenosis with ventral and d orsal indentation of the spinal cord. C3-C4: There is a central extrusion. There is moderate bilateral uncovertebral joint osteoarthritis. There is moderate right and severe left facet joint osteoarthritis. There is moderate bilateral neura l foraminal stenosis. There is severe central canal stenosis with ventral and dorsal indentation of t he spinal cord and increased T2-weighted signal intensity in the spinal cord. C4-C5: There is a left central extrusion. There is severe bilateral uncovertebral joint osteoarthriti s. There is moderate bilateral facet joint osteoarthritis. There is moderate bilateral neural foramin al stenosis. There is moderate central canal stenosis with ventral and dorsal indentation of the spin al cord and increased T2-weighted signal intensity in the spinal cord. C5-C6: The disc is bulging with superimposed left central extrusion. There is moderate right and salma re left uncovertebral joint osteoarthritis. There is mild bilateral facet joint osteoarthritis. There is moderate severe left neural foraminal stenosis. There is severe central canal stenosis with ventr al and dorsal indentation of spinal cord and increased signal in the cord. C6-C7: The disc is bulging. There is moderate bilateral uncovertebral joint osteoarthritis. There is mild bilateral facet joint osteoarthritis. There is mild bilateral neural foraminal stenosis. There i s mild central canal stenosis. C7-T1: The disc does not extend beyond the endplate margin. There is no uncovertebral joint osteoarth ritis. There is severe bilateral facet joint osteoarthritis. There is mild bilateral neural foraminal stenosis. There is no central canal stenosis. IMPRESSION: 1. Myelomalacia at C3-C4, C4-C5, and C5-C6; worsened from 03/22/2012. 2. Severe cervical spondylosis, worsened from 03/22/2012. Reviewed, dictated and finalized at location A.
== END 2022-06-06 09:31 | disposition home or self-care (01) ==
PROVIDERS: PCP Physician Assistant; Visit Provider Neurological Surgery
DX: R29.898 Other symptoms and signs involving the musculoskeletal system (principal); M47.892 Other spondylosis, cervical region
CPT/HCPCS: 72141

== ENCOUNTER 2022-07-16 11:51 | Outpatient (CLI) | payer OTHER, SELFPAY ==
--- NOTE | ~2022-07-16 | XR_ITS ---
XR cervical spine 4-5V 07/16/2022 12:35 Indication: Neck pain. Fall one year ago. Procedure: 6 views of the cervical spine including flexion/extension views. Comparison: 02/04/2022 Findings: Normal cervical lordosis. There is disc narrowing at C2-3, C4-5, C5-6 and C6-7. There are p rominent anterior bridging osteophytes at C2-3, C4-5 and C5-6. There is multilevel facet and uncinate hypertrophy. Odontoid process within normal limits. No significant change to alignment with flexion/ extension. No prevertebral soft tissue swelling. Impression: 1: Severe cervical spondylosis. Reviewed, dictated and finalized at location A. Impression: 1: Severe cervical spondylosis.
== END 2022-07-16 11:52 | disposition home or self-care (01) ==
PROVIDERS: PCP Physician Assistant; Visit Provider Neurological Surgery
DX: M54.2 Cervicalgia (principal); M47.812 Spondylosis without myelopathy or radiculopathy, cervical region
CPT/HCPCS: 72050

== ENCOUNTER 2022-12-08 10:27 | Outpatient (CLI) | payer OTHER, MEDICARE, SELFPAY ==
--- NOTE | ~2022-12-08 | MR_ITS ---
EXAMINATION: MR lumbar spine wo con DATE: 12/08/2022 11:13 INDICATION: Osteoarthritis of spine with radiculopathy. TECHNIQUE: Magnetic resonance imaging (MRI) of the lumbar spine was performed without intravenous con trast. Sequences included sagittal T2-weighted FSE, sagittal T2-weighted FS FSE, sagittal T1-weighted FSE, and axial T2-weighted FSE. COMPARISON: Lumbar spine radiograph 03/27/2022 FINDINGS: There is 6 degrees dextrocurvature of thoracolumbar spine. There are Schmorl's nodes at mos t levels. There is mild chronic anterior wedging of T11 vertebral body. There is mildly decreased dis c height at T12-L1, moderately decreased disc height at L1-L2 and L2-L3, mildly decreased disc height at L3-L4, moderately decreased disc height at L4-L5, and severely decreased disc height at L5-S1. Th ere are bridging endplate osteophytes at L2-L3, L4-L5, and L5-S1 and disc calcifications at these lev els. There is ligamentum flavum flavum hypertrophy at the disc levels from T12-L1 through L4-L5. The distal spinal cord signal intensity is normal. The conus medullaris is at T12. The following disc lev els are specifically discussed: L1-L2: The disc is bulging and has an annular fissure. There is moderate bilateral facet joint osteoa rthritis. There is moderate right and severe left neural foraminal stenosis. There is mild central ca nal stenosis. There is moderate stenosis of right lateral recess and severe stenosis of left lateral recess. L2-L3: The disc is bulging. There is mild bilateral facet joint osteoarthritis. There is moderate rayo ateral neural foraminal stenosis. There is mild central canal stenosis. L3-L4: The disc is bulging. There is mild bilateral facet joint osteoarthritis. There is moderate rayo ateral neural foraminal stenosis. There is moderate central canal stenosis. L4-L5: The disc is bulging. There is moderate bilateral facet joint osteoarthritis. There is moderate bilateral neural foraminal stenosis. There is mild central canal stenosis. L5-S1: The disc is bulging. There is severe bilateral facet joint osteoarthritis. There is moderate r ight and mild left neural foraminal stenosis. There is mild central canal stenosis. IMPRESSION: 1. Severe lumbar spondylosis. Reviewed, dictated and finalized at location A. ERY STORE CLERK
== END 2022-12-08 10:28 | disposition home or self-care (01) ==
PROVIDERS: PCP Physician Assistant; Visit Provider Neurological Surgery
DX: M47.816 Spondylosis without myelopathy or radiculopathy, lumbar region (principal); M47.22 Other spondylosis with radiculopathy, cervical region
CPT/HCPCS: 72148

== ENCOUNTER 2023-09-23 00:59 | Day surgery (SDC) | payer MEDICARE, OTHER, SELFPAY ==
[2023-09-06 12:46] VITALS: BMI 27.9
--- NOTE | 2023-09-21 12:42 | SUR.PREOP ---
Patient called regarding upcoming procedure. Reviewed preop instructions, appointment times, and procedure prep.
[2023-09-23 11:36] VITALS: BP 135/75; PULSE 50; RESP 18; TEMP 36.2; O2SAT 99
[2023-09-23] MEDS: LACTATED RINGERS 1,000 ML 150 ML IV CONT (11:43)
--- NOTE | 2023-09-23 12:20 | P.HP_ITS ---
History of Present Illness History of Present Illness Consent: Risks, benefits, and alternatives have been discussed and questions answered. Patient agrees to proceed with procedure. Chief complaint: neoplasm screening Narrative: Eliud Cabello is a 68 year old male Presents for screening colonoscopy. Patient's current weight appetite and bowel movements are normal. Patient denies abdominal pain. He has had no bleeding. Family history is noncontributory. Patient did have a previous exam for screening in 2010 that was unremarkable. Review of Systems Review of Systems: Review of systems is noncontributory. COUNTS INCLUDE 234 BEDS AT THE [facility] Past Medical History Medical History Arthritis Hyperlipidemia Hypertension Postoperative wound infection Surgical History Surgical History Ankle syndesmosis disruption tightrope July 25, 2021 Closed fracture of left distal fibula ORIF July 25, 2021 Family History Family History Father Family history of malignant neoplasm Patient's father is Mother Family history of heart disease in male family member before age 55 Patient's mother is Social History Social History Smoking status: Never smoker Second hand tobacco smoke exposure: Yes Alcohol intake: current Drinks per week: 1 Substance use: never Substance use type: does not use Living arrangements: with family Occupation/Education: retired Gender identity (if verbalized by the patient): Male Spiritual care concerns: No Meds Home Medications and Allergies Home Medications Medication Instructions Recorded Confirmed Type lisinopril 10 1 tablet PO HS 07/17/21 09/06/23 History mg-hydrochlorothiazide 12.5 mg tablet rosuvastatin 10 mg tablet 10 mg PO HS 07/17/21 09/06/23 History verapamil 240 mg 24 hr 240 mg PO HS 07/17/21 09/06/23 History capsule,extended release Allergies Allergy/AdvReac Type Severity Reaction Status Date / Time Penicillins Allergy Severe Hives Verified 09/23/23 11:33 Vital Signs Vital Signs - 24 hr 09/23/23 11:36 Temperature 97.2 F L Pulse Rate 50 L Respiratory Rate 18 Blood Pressure 135/75 Pulse Oximetry 99 Oxygen Delivery Room Air Exam Narrative: Physical exam reveals patient to be alert. Vital signs stable. HEENT exam is unremarkable. Patient is anicteric. Lungs are clear to auscultation and percussion. Heart is without murmur or extra sounds. Abdomen bowel sounds are present soft nontender with no organomegaly. Digital external rectal exam is normal. Assessment and Plan Assessment and plan (1) Encounter for screening colonoscopy: Code(s): Z12.11 - Encounter for screening for malignant neoplasm of colon Status: Acute Assessment and Plan: Patient presents today for screening colonoscopy. Patient appears to be at average risk for colon polyps. Further recommendations may be given after endoscopy.
--- NOTE | 2023-09-23 12:24 | SUR.PREOP ---
Patient and family notified of procedure delay.
--- NOTE | 2023-09-23 13:03 | P.PNAN_ITS ---
Anes - Initial Pre Proc Eval Procedure: Operation Date: 09/23/23 13:00 Proposed Procedures p Screening Colonoscopy - Bull Phillips MD Date/Time: 09/23/23 13:03 Surgeon: Bull Phillips MD Pre Op Diagnosis: neoplasm screening Patient Data Age: 68 Gender: M Height: 1.8 m Weight: 98.9 kg Last Vital Signs Temp 97.2 F L 09/23/23 11:36 Pulse 50 L 09/23/23 11:36 Resp 18 09/23/23 11:36 BP 135/75 09/23/23 11:36 Pulse Ox 99 09/23/23 11:36 O2 Del Method Room Air 09/23/23 11:36 Allergies Allergy/AdvReac Type Severity Reaction Status Date / Time Penicillins Allergy Severe Hives Verified 09/23/23 11:33 Home Medications Medication Instructions Recorded Confirmed Type lisinopril 10 1 tablet PO HS 07/17/21 09/06/23 History mg-hydrochlorothiazide 12.5 mg tablet rosuvastatin 10 mg tablet 10 mg PO HS 07/17/21 09/06/23 History verapamil 240 mg 24 hr 240 mg PO HS 07/17/21 09/06/23 History capsule,extended release Patient hx anesthesia problems: none Family hx anesthesia problems: none Results Review: All pre-operative results and documents have been reviewed as part of the pre- operative evaluation. [facility] Past Medical History Medical History Arthritis Hyperlipidemia Hypertension Postoperative wound infection Surgical History Surgical History Ankle syndesmosis disruption tightrope July 25, 2021 Closed fracture of left distal fibula ORIF July 25, 2021 Family History Family History Father Family history of malignant neoplasm Patient's father is Mother Family history of heart disease in male family member before age 55 Patient's mother is Social History Social History Smoking status: Never smoker Second hand tobacco smoke exposure: Yes Alcohol intake: current Drinks per week: 1 Substance use: never Substance use type: does not use Living arrangements: with family Occupation/Education: retired Gender identity (if verbalized by the patient): Male Spiritual care concerns: No Anes - Eval Final PreProcedure Day of Procedure 09/23/23 13:03 Patient weight: normal Heart: regular rate and rhythm Lungs: clear to auscultation Airway: Mallampati scale class II Neurological: alert and oriented Last oral intake: >/= 8 hours ASA classification: III Emergent: no Anesthetic plan: proceed Anesthesia type and monitoring: general GIVS and standard monitoring Results Review: All pre-operative results and documents have been reviewed as part of the pre-operative evaluation. Informed Consent: The patient's anesthetic plan and its attendant risks and benefits were discussed with the patient/family/POA. Questions were solicited and answers provided to the satisfaction of the patient/family/POA.
[2023-09-23 13:52] VITALS: BP 109/56; PULSE 45; RESP 20; O2SAT 95
[2023-09-23 14:02] VITALS: BP 111/71; PULSE 48; RESP 20; O2SAT 97
[2023-09-23 14:12] VITALS: BP 121/63; PULSE 48; RESP 20; O2SAT 98
== END 2023-09-23 14:25 | disposition home or self-care (01) ==
PROVIDERS: PCP Physician Assistant; Visit Provider Internal Medicine Gastroenterology
PROC: 0DJD8ZZ Inspection of Lower Intestinal Tract, Via Natural or Artificial Opening Endoscopic (ICD-10-PCS; CPT 45378; principal; 2023-09-23 13:00)
DX: Z12.11 Encounter for screening for malignant neoplasm of colon (principal); K63.5 Polyp of colon; E78.5 Hyperlipidemia, unspecified; I10 Essential (primary) hypertension; Z82.49 Family history of ischemic heart disease and other diseases of the circulatory system; Z80.9 Family history of malignant neoplasm, unspecified
CPT/HCPCS: 45385; 88305; J2704; J7120